=== PATIENT | female | born 1950 | race Caucasian/White ===

== ENCOUNTER 2020-09-29 05:42 | Outpatient (CLI) | payer MEDICARE ==
[~2020-09-29] VITALS: Ht 154.9 cm; Wt 79.1 kg
[2020-09-29] MEDS ORDERED: FLUT9.9S NS (10:25)
[2020-09-29] MEDS ORDERED: PRAV20TA3 PO (10:25)
[2020-09-29] MEDS ORDERED: MULT-974 PO (10:25)
[2020-09-29] MEDS ORDERED: LISI10TA25 PO (10:25)
[2020-09-29] MEDS ORDERED: LISI1TAB46 PO (10:25)
[2020-09-29] MEDS ORDERED: VITA1CAP PO (10:25)
[2020-09-29] MEDS ORDERED: CALC-250 PO (10:25)
[2020-09-29] MEDS ORDERED: ASPI-999 PO (10:25)
== END 2020-09-29 10:50 | disposition home or self-care (01) ==
LOC: PREOP 05:42
PROVIDERS: ATTEND Obstetrics & Gynecology
DX: Z01.818 Encounter for other preprocedural examination (principal)

== ENCOUNTER 2020-10-07 10:16 | Day surgery (SDC) | payer MEDICARE, MEDICAID ==
[2020-10-07] VITALS (14 sets, daily range): BP systolic 112–181; BP diastolic 53–89
[~2020-10-07] VITALS: Ht 154.9 cm; Wt 79.1 kg
[~2020-10-07 10:16] MED LIST: ASPI-999 PO; CALC-250 PO; FLUT9.9S NS; LISI10TA25 PO; LISI1TAB46 PO; MULT-974 PO; PRAV20TA3 PO; VITA1CAP PO
[2020-10-07] MEDS ORDERED: ESTRADIOL VAGINAL CREAM 42.5 GM (ESTRACE) VG ONE (10:51)
[2020-10-07] MEDS: LACTATED RINGERS 1,000 ML IV PRN ×3 (11:14→17:02)
[2020-10-07] MEDS ORDERED: MIDAZOLAM 2 MG/2 ML (VERSED) VIAL ONE (11:17)
[2020-10-07] MEDS ORDERED: SEVOFLURANE (ULTANE) 15 ML INHAL SOLN ONE ×2 (11:17→13:42)
[2020-10-07] MEDS ORDERED: ONDANSETRON 4 MG/2 ML (SDV) Z0FRAN ONE ×2 (11:17→14:15)
[2020-10-07] MEDS ORDERED: proPOfol 200 MG/20 ML (DIPRIVAN) VIAL IV ONE ×2 (11:17→13:48)
[2020-10-07] MEDS ORDERED: fentaNYL INJ 100 MCG/2 ML AMP ONE (11:17)
[2020-10-07] MEDS ORDERED: LIDOCAINE PF 2% 5 ML (XYLOCAINE) VIAL ONE (11:17)
[2020-10-07 11:23] LABS: BASOPHILS % (AUTO) 0 % (0-10); EOSINOPHILS # (AUTO) 0.4 10^3/uL (0.0-0.3); EOSINOPHILS % (AUTO) 6 % (0-10); HEMATOCRIT 43 % (35-52); HEMOGLOBIN 13.9 g/dL (11.5-16.0); LYMPHOCYTES # (AUTO) 1.7 10^3/uL (1.0-4.0); LYMPHOCYTES % (AUTO) 24 % (12-44); MEAN CORPUSCULAR HEMOGLOBIN 29 pg (25-34); MEAN CORPUSCULAR HGB CONC 33 g/dL (32-36); MEAN CORPUSCULAR VOLUME 88 fL (80-99); MEAN PLATELET VOLUME 8.9 fL (9.0-12.2); MONOCYTES # (AUTO) 0.6 10^3/uL (0.0-1.0); MONOCYTES % (AUTO) 8 % (0-12); NEUTROPHILS # (AUTO) 4.4 10^3/uL (1.8-7.8); NEUTROPHILS % (AUTO) 62 % (42-75); PLATELET COUNT 234 10^3/uL (130-400); WHITE BLOOD COUNT 7.2 10^3/uL (4.3-11.0)
[2020-10-07] MEDS ORDERED: ceFAZolin INJECTION 1,000 MG ONE (12:24)
[2020-10-07] MEDS ORDERED: WATER (STERILE) FOR INJECTION 20 ML ONE (12:24)
--- NOTE | 2020-10-07 12:31 | Progress Note-Pre Operative ---
Pre-Operative Progress Note H&P Reviewed The H&P was reviewed, patient examined and no changes noted. Date Seen by Provider: Oct 07, 2020 Time Seen by Provider: 12:31 Date H&P Reviewed: Oct 07, 2020 Time H&P Reviewed: 12:31 Pre-Operative Diagnosis: YESSI ARNDT MD Oct 07, 2020 12:31
--- NOTE | 2020-10-07 12:32 | Progress Note-Post Operative ---
Post-Operative Progess Note Surgeon (s)/Coffee Sommelier (s) Surgeon YESSI GUERRERO MD Coffee Sommelier: LESLIE FARLEY MD Pre-Operative Diagnosis KAELYN Post-Operative Diagnosis SAME Procedure & Operative Findings Date of Procedure 10/07/20 Procedure Performed/Findings PVS AND CYSTO Anesthesia Type GENERAL Estimated Blood Loss Estimated blood loss (mL): NEGLIGIBLE Specimens/Packing Specimens Removed NONE PackinG ESTRACE VAG PACK YESSI GUERRERO MD Oct 07, 2020 12:32
--- NOTE | 2020-10-07 12:33 | Progress Note-Pre Operative ---
Pre-Operative Progress Note H&P Reviewed The H&P was reviewed, patient examined and no changes noted. Date Seen by Provider: Oct 07, 2020 Time Seen by Provider: 12:33 Date H&P Reviewed: Oct 07, 2020 Time H&P Reviewed: 12:33 Pre-Operative Diagnosis: Complete vaginal prolapse LESLIE FARLEY MD Oct 07, 2020 12:33
--- NOTE | 2020-10-07 12:34 | Progress Note-Post Operative ---
Post-Operative Progess Note Surgeon (s)/Workers Compensation Attorney (s) Surgeon LESLIE FARLEY MD Workers Compensation Attorney: LESLIE FARLEY MD Pre-Operative Diagnosis Complete vaginal prolapse Post-Operative Diagnosis Same Procedure & Operative Findings Date of Procedure 10/07/20 Procedure Performed/Findings Anterior and posterior vaginal repairs with enterocele repair as well as sacrospinous ligament suspension with Dr. Ronquillo performing a pubovaginal sling and cystoscopy Anesthesia Type GETA Estimated Blood Loss Estimated blood loss (mL): 150CC Specimens/Packing Specimens Removed None PackinG ESTRACE VAG PACK Kerlix gauze LESLIE FARLEY MD Oct 07, 2020 12:34
[2020-10-07] MEDS ORDERED: HYDROmorphone 2 MG/ML VIAL (DILAUDID) ONE ×2 (13:34→14:15)
[2020-10-07] MEDS ORDERED: ROCURONIUM 10 MG/ML 5 ML SYRINGE IV ONE (13:49)
[2020-10-07] MEDS ORDERED: HYDROmorphone 2 MG/ML VIAL (DILAUDID) IV ONE (14:15)
[2020-10-07] MEDS ORDERED: ONDANSETRON 4 MG/2 ML (SDV) Z0FRAN IVP PRN ×3 (14:15→17:15)
[2020-10-07] MEDS ORDERED: MEPERIDINE (DEMEROL) INJ 50 MG/ML IVP ONE (14:15)
--- NOTE | 2020-10-07 14:19 | Anesthesia-General Post-Op ---
General Patient Condition Mental Status/LOC: Same as Preop Cardiovascular: Satisfactory Nausea/Vomiting: Absent Respiratory: Satisfactory Pain: Controlled Complications: Absent Post Op Complications Complications None Follow Up Care/Instructions Patient Instructions None needed. Anesthesia/Patient Condition Patient Condition Patient is doing well, no complaints, stable vital signs, no apparent adverse anesthesia problems. No complications reported per nursing. SHILOH CLAIRE CRNA Oct 07, 2020 14:19
--- NOTE | 2020-10-07 16:16 | Diagnostic Imaging Report ---
INDICATION: Aspiration. EXAMINATION: PA and lateral chest. FINDINGS: Heart size and pulmonary vascularity are normal. Lungs are clear. There are no effusions or pneumothoraces. IMPRESSION: Negative chest. Dictated by: Dictated on workstation # [id number]
[2020-10-07] MEDS ORDERED: fentaNYL INJ 100 MCG/2 ML AMP IVP PRN (17:15)
[2020-10-07] MEDS ORDERED: BENZOCAINE/MENTHOL (DERMOPLAST) 56 ML CAN TP PRN (17:15)
[2020-10-07] MEDS ORDERED: ESTROGENS CONJ INJECTION 25 MG in WATER (STERILE) FOR INJECTION 5 ML IV ONE (17:15)
[2020-10-07] MEDS ORDERED: oxyCODONE/APAP 5/325MG (PERCOCET 5) TABLET PO PRN (17:15)
[2020-10-07] MEDS ORDERED: DCS100C PO (17:16)
[2020-10-07] MEDS ORDERED: OXYC1TAB87 PO (17:16)
[2020-10-07] MEDS ORDERED: IBUP-1780 PO (17:16)
--- NOTE | 2020-10-07 17:18 | Discharge Inst-Surgical ---
Discharge Inst-Surgical Depart Medication/Instructions New, Converted or Re-Newed RX: RX on Chart Consults/Follow Up Patient Instructions: as directed Orders & Referrals Follow Up Appt: Call to make follow up appt. for patient in 4 weeks. Activity: Rest for 24 hours, than as tolerated. Please call in RX to patient pharmacy. Diet: As tolerated shower or tub bathe as desired. No driving for 24 hours, no alcoholic beverages for 24 hours, and nothing per vagina (no tampons, douching, or intercoarse) for 2 weeks. Patient to return to the clinic as soon as possible for: Temperature greater than 101F, Severe Pain, Foul discharge from incision or vagina, Excessive Bleeding (more than a period). Activity Activity as Tolerated: No Diet Discharge Diet: No Restrictions LESLIE FARLEY MD Oct 07, 2020 17:18
[2020-10-07] MEDS: KETOROLAC 30 MG/ML VIAL IVP SCH (17:41)
[2020-10-07] MEDS ORDERED: IBUPROFEN 800 MG (MOTRIN) TAB PO SCH (18:00)
--- NOTE | 2020-10-07 20:53 | OPERATIVE REPORT ---
DATE OF SERVICE: 10/07/2020 PREOPERATIVE DIAGNOSIS: On my part, stress urinary incontinence. POSTOPERATIVE DIAGNOSIS: On my part, stress urinary incontinence. OPERATION PERFORMED: Pubovaginal sling. SURGEON: Yessi Guerrero MD. GRINDING AND SPRAYING SUPERVISOR: Sreekanth Joe MD ANESTHESIA: General. COMPLICATIONS: None. DESCRIPTION OF PROCEDURE: After Dr. Joe performed the first part of his surgery that he will dictate, I inserted the Kaur catheter draining clear urine. I passed the Desara sling device on both sides following the described technique. The sling was sitting nicely under the midurethra. There was no twisting, no tension, passage of a curved hemostat easily between it and the underlying tissue. I removed the Kaur catheter and performed cystoscopy to confirm the integrity of the bladder, ureteral orifices and urethra with no foreign body and presence of the sling under the mid urethra. I left the bladder at least half full, removed the cystoscope and performed a manual Valsalva maneuver that was negative. I reinserted the Kuar catheter draining clear fluid. Estimated blood loss negligible and then Dr. Joe performed the rest of his surgery that he will dictate. Job ID: [id number] DocumentID: [id number] Dictated Date: 10/07/2020 13:15:28 Kitchen Aide Date: 10/07/2020 20:53:33 Dictated By: YESSI GUERRERO MD
[2020-10-07] MEDS ORDERED: DOCUSATE SODIUM 100 MG (COLACE) CAP PO SCH (21:00)
[2020-10-07] MEDS: D5 LR IV SOLUTION 1,000 ML IV SCH (23:59)
[2020-10-08 00:50] VITALS: BP 132/65
[2020-10-08] MEDS: KETOROLAC 30 MG/ML VIAL IVP SCH ×2 (00:50→06:39)
[2020-10-08] MEDS: D5 LR IV SOLUTION 1,000 ML IV SCH (00:52)
[2020-10-08 04:30] VITALS: BP 139/64
--- NOTE | 2020-10-08 06:31 | OPERATIVE REPORT ---
DATE OF SERVICE: 10/07/2020 PREOPERATIVE DIAGNOSES: 1. Vaginal prolapse. 2. Stress urinary incontinence. POSTOPERATIVE DIAGNOSES: 1. Vaginal prolapse. 2. Stress urinary incontinence. OPERATIVE PROCEDURE: Anterior and posterior vaginal repairs with enterocele repair as well as sacrospinous ligament suspension with Dr. Turner doing a pubovaginal sling and cystoscopy. OPERATIVE DESCRIPTION: With the patient in the supine position under satisfactory general anesthesia, she was repositioned in dorsal lithotomy position in the [facility] and prepped and draped in the usual fashion for vaginal surgery. The patient had complete vaginal prolapse with a large mass protruding from the vagina consisting of cystocele, rectocele and enterocele all third degree. The prolapse was reduced and then anterior repair was affected by placing Simone clamps on the anterior vaginal wall near the midline, the vaginal wall was opened in the midline vertically from approximately 1.5 cm from the urethra to the apex of the vagina. The bladder wall was carefully dissected off the muscularis of the vagina back to pubic bone bilaterally and was then reduced and elevated back up into the pelvis. At this point, sutures of 2-0 Vicryl were used to plicate the endopelvic fascia and bladder wall, elevating the bladder and supporting it in the pelvis and lengthening the urethra. At this point, Dr. Turner assumed care of the patient and I remained to assist. Dr. turner performed a pubovaginal sling and cystoscopy and after which he left the Kaur catheter to dependent drainage and I resumed care of the patient. Redundant anterior vaginal wall muscularis mucosa was removed sharply. Vaginal wall was closed with a running locked suture of 3-0 Vicryl Rapide. Hemostasis was complete. Good reapproximation and hemostasis was achieved and good support was evident. Posterior repair was then effected by placing Simone clamps on the perineum and hymenal ring at the 5 and 7 o'clock position. An inverted triangle of skin was was removed from the perineal body and upright triangle was removed from the posterior vaginal floor. The rectovaginal space was entered sharply and dissected to the apex of the vagina. Digital dissection was then carried through the right rectal pillar to the ischial spine onto the sacrospinous ligament. The Capio device was loaded with a 2-0 Ethibond suture and then that suture was placed a centimeter medial to the ischial spine and second suture of the same was placed a centimeter medial to that. Both of the sutures were double armed. Both arms of each were brought out through the apex of the vagina tagged and held long for tying later. The rectovaginal space was now obliterated with sutures of 2-0 Vicryl. A small enterocele was reduced at the apex and plicated with 2-0 Vicryl sutures as well. The perineal body was restored with sutures of 2-0 Vicryl. Posterior vaginal floor redundant tissue was removed with a Metzenbaum scissors. The posterior vaginal wall was then closed with a running locked suture of 3-0 Vicryl Rapide, that closure was continued past the hymenal ring down on the perineal body then back up subcutaneous to the hymenal ring where the suture was tied. Digital rectal exam confirmed no stricture or stenosis of the rectum and no sutures into or through the rectal mucosa. The vagina was now examined for hemostasis that being complete. With the posterior repair completed, the sacrospinous ligaments suspension sutures were now tied. As each was tied, the apex of the vagina was brought well back up into the pelvis. Those sutures were cut short and then the vagina was filled with Estrace vaginal cream and a pack of Kerlix gauze was placed. Sponge and needle counts were correct on completion of procedure. Blood loss was around 150 mL. The patient tolerated the procedure well and was uneventfully awakened from her general anesthesia and transferred to recovery room in stable condition. Job ID: [id number] DocumentID: [id number] Dictated Date: 10/07/2020 18:48:13 Facilities Painter Date: 10/08/2020 03:26:29 Dictated By: LESLIE FARLEY MD [facility]
[2020-10-08 08:05] VITALS: BP 148/75
--- NOTE | 2020-10-08 08:39 | Progress Note ---
Standard Progress Note Progress Notes/Assess & Plan Date Seen by a Provider: Oct 08, 2020 Time Seen by a Provider: 08:37 Progress/Assessment & Plan This patient is without complaint. She is ambulating, voiding, tolerating oral intake well has good pain control. Patient denies chest pain, denies shortness of breath, denies nausea vomiting, and denies headache. Vital Signs Date Time Temp Pulse Resp B/P (MAP) Pulse Ox O2 Delivery O2 Flow Rate FiO2 10/08/20 04:30 36.9 79 16 139/64 (89) 98 Nasal Cannula 100.00 10/08/20 00:50 36.3 76 16 132/65 (87) 96 Nasal Cannula 100.00 10/07/20 20:45 36.1 83 16 137/62 (87) 96 Nasal Cannula 100.00 10/07/20 20:45 96 Nasal Cannula 1.00 10/07/20 16:40 82 16 140/63 (88) 97 Nasal Cannula 100.00 10/07/20 16:10 79 16 162/74 (103) 96 Nasal Cannula 2.00 10/07/20 15:40 83 16 121/75 (90) 97 Nasal Cannula 2.00 10/07/20 15:15 Nasal Cannula 2.00 10/07/20 15:15 36.2 73 16 134/63 (86) 100 Nasal Cannula 2.00 10/07/20 15:10 Nasal Cannula 2 10/07/20 15:10 36.1 20 136/76 (96) 96 Nasal Cannula 2 10/07/20 15:00 Nasal Cannula 2 10/07/20 15:00 20 136/76 (96) 97 Nasal Cannula 2 10/07/20 14:50 20 148/68 (94) 97 Nasal Cannula 2 10/07/20 14:45 Nasal Cannula 3 10/07/20 14:40 20 153/64 (93) 97 Nasal Cannula 3 10/07/20 14:30 Nasal Cannula 3 10/07/20 14:30 20 144/69 (94) 98 Nasal Cannula 3 10/07/20 14:20 20 134/68 (90) 99 Nasal Cannula 3 10/07/20 14:15 OxyMask 6 10/07/20 14:10 20 121/60 (80) 100 OxyMask 4 10/07/20 14:05 36.1 20 112/53 (72) 100 OxyMask 6 10/07/20 14:05 OxyMask 6 10/07/20 10:45 36.3 83 16 181/89 (119) 97 Room Air I & O 10/08/20 07:00 Intake Total 4880 ml Output Total 2600 ml Balance 2280 ml Vital signs are stable. Patient is afebrile. The abdomen is benign Extremities show no clubbing or cyanosis. There is no Homans' sign. The pelvic exam is deferred Assessment and plan postoperative day #1 doing well. Plan is for routine convalescent care with discharge home when she demonstrates adequate bladder function Final Diagnosis Vaginal prolapse and stress urinary incontinence LESLIE FARLEY MD Oct 08, 2020 08:39
[2020-10-08] MEDS ORDERED: DOCUSATE SODIUM 100 MG (COLACE) CAP PO SCH (09:00)
[2020-10-08] MEDS ORDERED: IBUPROFEN 800 MG (MOTRIN) TAB PO SCH (17:15)
== END 2020-10-08 11:15 | disposition home or self-care (01) ==
LOC: SDC 10:16 → WS 15:10 → SDC 10-08 11:15
PROVIDERS: ATTEND Obstetrics & Gynecology
DX: N81.3 Complete uterovaginal prolapse (principal); N39.3 Stress incontinence (female) (male); N95.2 Postmenopausal atrophic vaginitis; I10 Essential (primary) hypertension; M06.9 Rheumatoid arthritis, unspecified; K21.9 Gastro-esophageal reflux disease without esophagitis; E78.5 Hyperlipidemia, unspecified; F32.9 Major depressive disorder, single episode, unspecified; Z79.899 Other long term (current) drug therapy; Z88.8 Allergy status to other drugs, medicaments and biological substances; Z80.6 Family history of leukemia; Z87.891 Personal history of nicotine dependence; Z90.710 Acquired absence of both cervix and uterus; Z79.82 Long term (current) use of aspirin
CPT/HCPCS: 57265; 57288; 71046; 85025; 87081; 94664; C1771; 36415